=== PATIENT | female | born 1945 | race Caucasian/White ===

== ENCOUNTER → 2022-03-10 10:48 | Outpatient (CLI) | payer MEDICARE, SELFPAY ==
[2022-03-10 11:34] LABS: COVID19 -Nasal RAPID Negative (Negative)
== END ==
PROVIDERS: Referring Provider Internal Medicine Cardiovascular Disease; Visit Provider Internal Medicine Cardiovascular Disease
DX: Z20.822 Contact with and (suspected) exposure to COVID-19 (principal)
CPT/HCPCS: 87635; C9803

== ENCOUNTER → 2022-03-10 10:56 | Outpatient (CLI) | payer MEDICARE, SELFPAY ==
--- NOTE | 2022-03-15 11:12 | PM.PFT.1 ---
Pulmonary Function Test Referral & Results Date Patient Seen: 03/10/22 Requesting provider: Vijaya Mattson Results: The spirometry demonstrates an FVC of 2.43 L which is 71% of predicted. The FEV1 was measured at 1.81 L which is 74% of predicted. The FEV1/FVC ratio was 74 which is 103% of predicted. Following the administration of bronchodilator there was a 21% improvement in FEF 25-75% Lung volumes show an SVC of 2.62 L which is 70% of predicted. The diffusing capacity was measured at 13.07 which is 51% of predicted. No hemoglobin value was provided, so no correction for potential anemia could be made, if appropriate. The maximum voluntary ventilation was 97% Interpretation: This study demonstrates possibly mild obstructive lung disease based on reduction FEV1 and minimal improvement in small airway flow based on improvement in FEF 25-75% after bronchodilator. However FEV1/FVC ratio was preserved Lung volumes are also moderately reduced suggesting an element of restrictive lung disease which may well explain abnormality of FEV1 above There is a moderate to severe reduction in diffusing capacity suggesting significant disease at the capillary alveolar level as well Clinical correlation suggested
== END ==
PROVIDERS: Referring Provider Specialist; Visit Provider Specialist
DX: J98.4 Other disorders of lung (principal); R06.02 Shortness of breath; Z20.822 Contact with and (suspected) exposure to COVID-19; Z87.891 Personal history of nicotine dependence; J98.8 Other specified respiratory disorders
CPT/HCPCS: 87635; 94060; 94726; 94729; C9803

== ENCOUNTER 2022-09-21 12:30 | Outpatient (RCR) | payer MEDICARE, MEDICAID, SELFPAY | END 2022-09-21 14:30 | LOC: PUL 12:30 | PROVIDERS: Referring Provider Specialist; Visit Provider Specialist | DX: J43.8 Other emphysema (principal) | CPT/HCPCS: G0237; G0238 ==

== ENCOUNTER → 2023-01-24 12:28 | Outpatient (CLI) | payer MEDICARE, MEDICAID, SELFPAY ==
--- NOTE | 2023-01-25 15:01 | PM.PFT.1 ---
Pulmonary Function Test Referral & Results Date Patient Seen: 01/24/23 Results: The spirometry demonstrates an FVC of 2.57 L which is 99% of predicted. The FEV1 was measured at 1.94 L which is 100% of predicted. The FEV1/FVC ratio was 76 which is 100% of predicted. Following the administration of bronchodilator there was no appreciable change to above normal numbers. Lung volumes show an SVC of 2.82 L which is 108% of predicted. The diffusing capacity was measured at 13.44 which is 60% of predicted. No hemoglobin value was provided, so no correction for potential anemia could be made, if appropriate. The maximum voluntary ventilation was normal Interpretation: This study demonstrates normal spirometry There is a moderate reduction in diffusing capacity suggesting disease at the capillary alveolar level Clinical correlation suggested
== END ==
PROVIDERS: Referring Provider Internal Medicine Pulmonary Disease; Visit Provider Internal Medicine Pulmonary Disease
DX: J84.115 Respiratory bronchiolitis interstitial lung disease (principal); Z87.891 Personal history of nicotine dependence; J84.9 Interstitial pulmonary disease, unspecified; J98.4 Other disorders of lung; R91.8 Other nonspecific abnormal finding of lung field
CPT/HCPCS: 71250; 94060; 94618; 94726; 94729

== ENCOUNTER → 2023-01-24 12:28 | Outpatient (CLI) | payer MEDICARE, MEDICAID, SELFPAY ==
--- NOTE | 2023-01-24 | DI.CT.S_ITS ---
PROCEDURE: CT CHEST HIGH RESOLUTION INDICATIONS: Interstitial pulmonary disease, unspecified TECHNIQUE: Noncontrast 1.0 and 5.0 mm thick contiguous axial sections from the pulmonary apex to the posterior costophrenic angles, with 7 mm thick coronal and sagittal MIP reformats. 1 mm thick dynamic expiratory images acquired through the upper, mid, and lower lungs. 1.0 mm thick axial sections acquired from the rupal to the posterior costophrenic angles in the prone end-inspiration position. For radiation dose reduction, the following was used: automated exposure control, adjustment of mA and/or kV according to patient size. COMPARISON: None. FINDINGS: Image quality: Excellent. Lungs: Diffuse peripheral reticulation, without basilar predominance. Superimposed substantial paraseptal emphysema, predominantly in the lower lungs. No air trapping. No honeycombing. Mild bronchiectasis. Mild bronchial thickening with a few regions of mucous impaction. Scattered pulmonary micro nodules. For instance, the 2 mm nodule in the lateral right upper lobe (2/100). Pleura: No pleural effusions or pneumothorax. Mediastinum: Heart size is normal. No pericardial effusion. Thoracic aorta and central pulmonary arteries are normal in size. Esophagus is normal in caliber. Mild coronary artery calcifications for age. Bones and chest wall: No suspicious bony lesions. No vertebral body compression fractures. Abdomen: Visualized upper abdominal solid organs and bowel loops appear normal. IMPRESSION: 1. 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 Differential includes combined fibrosis and emphysema. 2. Scattered pulmonary micro nodules. Consider 12 month follow-up per Fleischner society guidelines. Dictated by: Prince Velarde M.D. on 01/24/2023 at 16:11 Approved by: Prince Velarde M.D. on 01/24/2023 at 16:15
== END ==
PROVIDERS: Referring Provider Internal Medicine Pulmonary Disease; Visit Provider Internal Medicine Pulmonary Disease
DX: J84.9 Interstitial pulmonary disease, unspecified (principal); R91.8 Other nonspecific abnormal finding of lung field
CPT/HCPCS: 71250

== ENCOUNTER → 2023-12-12 14:13 | Outpatient (CLI) | payer MEDICARE, MEDICAID, SELFPAY | PROVIDERS: Family Provider Family Medicine; PCP Family Medicine; Referring Provider Family Medicine; Visit Provider Family Medicine | DX: R91.8 Other nonspecific abnormal finding of lung field (principal); J43.8 Other emphysema; F17.210 Nicotine dependence, cigarettes, uncomplicated; J98.8 Other specified respiratory disorders | CPT/HCPCS: 94060; 94726; 94729 ==

== ENCOUNTER 2024-01-02 13:00 | Outpatient (RCR) | payer MEDICARE, MEDICAID, SELFPAY ==
--- NOTE | 2023-12-12 16:45 | PT.OIE ---
Current Diagnoses Cervicalgia (12/12/23) Past Medical History (Last Updated 11/13/23 @ 14:25 by Jacquelyn Larson MD) ADHD Lung nodules Neck strain Other low back pain Visit Care Team Role Provider Type Jacquelyn Larson MD Attending Provider Physician Family Provider Primary Care Provider Referring Provider Specialty: Family Practice [facility] Address: [address] [place] [address], [facility] Email: [email or web address] Physical Therapy Initial Evaluation PT-OP-A Visit Information Start: 12/12/23 13:01 Freq: Status: Active Protocol: Document 12/12/23 13:01 NM (Rec: 12/12/23 14:15 NM [id number]) Out-Patient Physical Therapy Visit Information Visit Information Visit Type Initial Evaluation Visit Start Time 13:00 Visit Stop Time 13:50 Visit Number 1 Evaluation Information Evaluation Date 12/12/23 PT-OP-B Current Condition Start: 12/12/23 13:01 Freq: Status: Active Protocol: Document 12/12/23 13:01 NM (Rec: 12/12/23 14:15 NM [id number]) Current Condition History of Current Condition Onset Date 3 weeks ago Current Complaints stiffness History of Current Condition Pt presents with hx of L sided neck pain beginning 3 weeks ago. The pain lasted 2 weeks, beginning when pt quickly turned her head wrong. Afterward, she had difficulty with turning head and went to walk-in clinic due to pain. It is believed it was strain. She states that the pain was sharp, immediate and nervy radiated to L posterior elbow nicole when turning her head L. She put heat on it, which as helped resolve the pain. She can feel slight strain when she lifts her L arm, but no numbness or tingling. No difficulty with sleeping currently; however, during the episode of pain she did. Sleeping on R side is most helpful. Hx of torn rotator cuffs (nonsurgical treatment) form 10 years ago, reports fully functional with shoulder . Has had past PT for lower spine and hips. Hx of osteoporosis (dx several years ago); she is taking calcium and vitamin D, does not take fosamax. Prior Treatments and Tests No imaging for cervical spine Treatment Goals Patient/Caregiver Goals more flexibility Personal Factors Other Personal Factors That May Effect Traveling from [place] Therapy/Recovery PT-OP-C Subjective Start: 12/12/23 13:01 Freq: Status: Active Protocol: Document 12/12/23 13:01 NM (Rec: 12/12/23 14:15 NM [id number]) OP-PT Subjective Patient Comments Patient Comments see hx above for pt report Patient Questionnaires Neck Disability Index NDI Score did not complete, unable to score Quick Dash- Upper Extremity Quick Dash UE Score 25% OP-PT Pain Assessment Pain Assessment Grid Paper Pain Assessment Grid Completed Yes: Currently no longer in pain Location Cervical spine Pain Location Details L sided neck near upper trap Intensity 0 Description Aching Description- Other soft bruise; at time of injury felt sharp and nervy Frequency Occasional Pain Duration none at rest; constant during movement when pain occurs Radiating Location L shoulder, L elbow/forearm when present Pain Aggravating Factors Position Other Pain Aggravating Factors L rotation, moving L arm into ext/IR; posture (when sitting on couch) Pain Alleviating Factors Heat,Rest Other Pain Alleviating Factors sitting forward Home Pain Medication Use Pain Medications Used No Pain Behaviors Pain Behaviors Holding Area PT-OP-D Balance Start: 12/12/23 13:01 Freq: Status: Active Protocol: Document 12/12/23 13:01 NM (Rec: 12/12/23 14:15 NM [id number]) Balance Tests Romberg Romberg 30 seconds Tandem Tandem Standing R 30 seconds, L 10 seconds before LOB Other Other Balance Tests Performed Eyes closed: 10 seconds, no sway PT-OP-E Functional Tests Start: 12/12/23 13:01 Freq: Status: Active Protocol: Document 12/12/23 13:01 NM (Rec: 12/12/23 14:15 NM [id number]) Functional Tests Other Deep Neck Flexor Endurance Test Name of Test chin tuck + cervical flexion for time Score 5 seconds PT-OP-F Manual Assessment Start: 12/12/23 13:01 Freq: Status: Active Protocol: Document 12/12/23 13:01 NM (Rec: 12/12/23 14:15 NM [id number]) Manual Assessments Soft Tissue Assessment Soft Tissue Mobility Assessment Soft tissue restrictions of B upper trapezius, periscapular muscles, rotator cuff, levator scapula and cervical paraspinals; L>R. Spasms and restrictions of B suboccipitals. Forward head posture and decreased cervical lordosis. Demos upper-crossed pattern Joint Mobility Assessment Joint Mobility Assessment Decreased lateral mobility of C3-C7. No tenderness but hypomobility of P-A springing along spinous processes. PT-OP-G Mobility & Gait Start: 12/12/23 13:01 Freq: Status: Active Protocol: Document 12/12/23 13:01 NM (Rec: 12/12/23 14:15 NM [id number]) OP Gait Assessment Gait Gait Assistance Required: Independent Distance (Feet) 150 Assistive Devices Assistive Device None Comments Gait Comments Decreased trunk rotation, forward head posture PT-OP-H Neuro Start: 12/12/23 13:01 Freq: Status: Active Protocol: Document 12/12/23 13:01 NM (Rec: 12/12/23 14:15 NM [id number]) Sensation Evaluation Gross Sensation Gross Sensation WNL Comments Summary Comments Cervical and BUE equally intact to light touch sensation Deep Tendon Reflex & Clonus Assessment Deep Tendon Reflex Bilateral Bicep Deep Tendon Reflex 2+ Normal PT-OP-J Posture/Palpation/Skin Start: 12/12/23 13:01 Freq: Status: Active Protocol: Document 12/12/23 13:01 NM (Rec: 12/12/23 14:15 NM [id number]) Posture Evaluation Position Standing Evaluation View lateral, posterior Head/C-Spine Posture C-Spine Flattened,Forward Head TMJ Posture Mandibular Protrusion Thorax Posture (R) Elevated L-Spine Posture Increased Lordosis Shoulder Posture (L) Rounded,(R) Rounded,(L) Forward,(R) Forward,(R) Elevated Scapula Posture (L) Protracted,(R) Protracted Pelvis Posture Anteriorly Tilted,(R) Iliac Crest Superior Weight Distribution Weight Shifted Right Hip Posture (L) Externally Rotated,(R) Externally Rotated Knee Posture (L) Genu Varus,(R) Genu Varus Patellar Posture (L) Superior,(R) Superior Comments Posture Comments Pt not formally diagnosed but 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 Palpation Assessment Location cervical spine Palpation Location paraspinals, upper trapezius, suboccipitals, deep neck flexors Palpation Findings Soft Tissue Tightness,Spasm, Tenderness Palpation Details Tenderness of L upper trap, paraspinals near mid-Cervical spine. Decreased activation of deep neck flexors. Spasms of B suboccipitals PT-OP-K Range of Motion Start: 12/12/23 13:01 Freq: Status: Active Protocol: Document 12/12/23 13:01 NM (Rec: 12/12/23 14:15 NM [id number]) Cervical Spine Range of Motion Cervical Spine Active Degrees Testing Position Sitting Flexion 55 Extension 60 Rotation Left 65 Rotation Right 65 Lateral Flexion Left 30 Lateral Flexion Right 25 ROM Limitations Soft Tissue Tightness,Bony Restriction Comments No pain with any motion, but B rotational deficits due to soft tissue tightness and bony restriction PT-OP-L Special Tests Start: 12/12/23 13:01 Freq: Status: Active Protocol: Document 12/12/23 13:01 NM (Rec: 12/12/23 14:15 NM [id number]) Special Tests Cervical Spine Special Tests Foraminal Compression Test Results - Passive Neck Flexion Test Results - Transverse Ligament Test Results - Vertebral Artery Test Results - Alar Ligament Test Results - Traction Test Results + Comments reports relief with elongation of neck muscles Spurling's Test Test Results - PT-OP-M Strength Start: 12/12/23 13:01 Freq: Status: Active Protocol: Document 12/12/23 13:01 NM (Rec: 12/12/23 14:15 NM [id number]) Cervical Spine Strength Cervical Spine Manual Muscle Testing Testing Position Sitting Flexion (C1-2) 4+ Good+ Extension 4+ Good+ Rotation Left 4+ Good+ Rotation Right 4+ Good+ Lateral Flexion Left (C3) 4+ Good+ Lateral Flexion Right (C3) 4+ Good+ Comments No pain with any resisted motion Trunk Strength Trunk Manual Muscle Testing Testing Position Sitting Flexion 4+ Good+ Extension 4+ Good+ Rotation Left 4+ Good+ Rotation Right 4+ Good+ Lateral Flexion Left 4+ Good+ Lateral Flexion Right 4+ Good+ Comments No pain with any resisted motion Shoulder Strength Shoulder Manual Muscle Testing Right Flexion 4 Good Extension 4+ Good+ Abduction (C5) 4+ Good+ Adduction 4 Good External Rotation 4 Good Internal Rotation 4 Good Left Flexion 4 Good Extension 4+ Good+ Abduction (C5) 4 Good Adduction 4 Good External Rotation 4 Good Internal Rotation 4 Good Elbow/Forearm Strength Elbow and Forearm Manual Muscle Testing Right Flexion (C6) 4+ Good+ Extension (C7) 4+ Good+ Left Flexion (C6) 4+ Good+ Extension (C7) 4+ Good+ PT-OP-Q Treatments Start: 12/12/23 13:01 Freq: Status: Active Protocol: Document 12/12/23 13:01 NM (Rec: 12/12/23 14:15 NM [id number]) Therapeutic Exercises Sitting Exercises scapular retractions Sitting Exercise Name for postural re-education; added to HEP Side bilateral Resistance AROM Reps/Minutes 2x8 with brief 2 hold Comments verbal cues for correct execution Standing Exercises Wall posture Standing Exercise Name head/back against wall, performing small capital nodding w head on wall Side bilateral Resistance AROM Reps/Minutes 1x10 w brief hold as nod down Comments cued to return to neutral position vs move into capital ext self soft tissue mobilization Standing Exercise Name Added to HEP: upper trapezius, paraspinals, rhomboids, Levator scapula Side left Reps/Minutes 4' Comments reports feels good; trial: suboccipital next session Self-Care/Home Management Treatment Education Patient Education Body Mechanics,Home Exercise Program,Joint Protection,Pain Management,Posture Other Education 8 minutes: PT educated pt briefly on posture, ergonomic sitting posture, preventing fwd head posturing and strain along posterior paraspinals, activation of deep neck flexors for improved head positioning and joint protection. Educated on use of modalities and soft tissue mobilization for muscular pain relief, particularly heat prior to massage. PT also educated on purpose/importance of HEP: scapular retractions, soft tissue mobilization of periscapulars/paraspinals, standing cervical nodding/ posture. Educated briefly on osteoporosis, strongly discouraged pt from cervical manipulations due to fracture risk as she is considering visiting chiropractor; recommended therapeutic massage instead. PT and pt discussed pt's exam findings, POC, and clinic attendance policy; both PT and pt in agreement. PT-OP-T Assessment and Plan Start: 12/12/23 13:01 Freq: Status: Active Protocol: Document 12/12/23 13:01 NM (Rec: 12/12/23 14:15 NM [id number]) Physical Therapy Assessment Rehab Potential Rehabilitation Potential Good Evaluation Complexity Number of Personal Factors/Comorbidities 3 or More Number of Body Systems Impaired 1-2 Clinical Presentation at Evaluation Stable Impairments Impairments Activity Tolerance,Balance, Functional Activities, Functional Mobility,Gait, Integument,Pain,Posture,ROM, Soft Tissue Mobility,Strength, Vestibular Other Concerns Age Related Concerns Osteoporosis Barriers to Rehabilitation Dependent on [id number] for transportation from [place], not always able to drive her car; has chronic low back pain/hip and B rotator cuff pain, which she would prefer treatment for as well but does not have referral Goals Four Impairment HEP Impairment no HEP Short Term Goal (STG) Pt will report compliance with HEP at least 3x/wk for maintenance and to demonstrate independence following discharge from PT. STG Duration 4 weeks [employer] In[employer] Goal (LTG) Pt will perform HEP at least 3x/wk for maintenance and to demonstrate independence following discharge from PT. LTG Duration 8 weeks Three Impairment endurance, strength Impairment deep neck flexor endurance test 5 seconds Short Term Goal (STG) Pt will improve deep neck flexor endurance score to at least 15 seconds without compensation or pain in order to demonstrate improved deep neck flexor activation for head posture STG Duration 4 weeks [employer] In[employer] Goal (LTG) Pt will improve deep neck flexor endurance score to at least 30 seconds without compensation or pain in order to demonstrate improved deep neck flexor activation for head posture LTG Duration 8 weeks Two Impairment function Impairment Quickdash 25% [employer] Instructor Goal (LTG) Pt will decrease quickdash score to less than 14% (MCID) in order to demonstrate improved tolerance for ADLs and symptom management LTG Duration 8 weeks One Impairment AROM Impairment B cervical rotation 65 deg, not painful [employer] Instructor Goal (LTG) Pt will increase B cervical rotation to >65 deg without compensation in order to demonstrate improved soft tissue extensibility and QOL LTG Duration 8 weeks Assessment Summary Assessment Pt is a 78 y.o. female presenting with hx of acute L- sided neck pain beginning 2 weeks ago. Currently, pt reports that pain has resolved with occasional feelings of achiness along L sided muscles . Her chief complaints are stiffness and tight neck muscles, particularly posteriorly along the cervical spine. She has limitations in only B cervical ROM (not painful), otherwise full and pain free AROM. She is able to maintain cervical muscle stabilization against resistance. Pt demos decreased activation and strength of cervical deep neck flexors, only maintaining painfree contraction for 5 seconds, which is below the gender related norm. Pt reports relief with soft tissue mobilization of paraspinals and periscapular muscles, followed by wall postural re- education. Negative spurling's test, cervical instability, and compression; however, reports relief with traction due to elongated muscles. No nerve symptoms reproduced or currently present. Pt presents with forward head and rounded shoulder posture, which likely places increased strain along posterior paraspinals and posterior capsule of cervical spine. Pt has moderate soft tissue restrictions along cervical spine and periscapular region. She also demos deviation of thoracic spine to R side but pt does not have a formal diagnosis of scoliosis. PT educated on increased fracture risk, precuations due to osteoporosis, with pt verbalizing understanding. PT and pt discussed pt's exam findings, POC, and clinic attendance policy; both PT and pt in agreement. Pt would benefit from skilled PT to improve pt's soft tissue restrictions, spinal mobility, and postural muscle strengthening/re-education in order to decrease pain symptoms, return to PLOF, and improve QOL. Physical Therapy Plan Frequency and Duration Frequency of Treatment 1-2x/wk Duration of treatment (weeks) 8 Plan of Care Start Date 12/12/23 Plan of Care End Date 02/06/24 Therapeutic Interventions Therapeutic Interventions Aquatic Therapy,Balance Training,Gait Training,Home Exercise Program,Joint Mobilizations,Manual Therapy, Neuromuscular Re-education, Patient/Caregiver Education, Self-Care/Home Management,Soft Tissue Mobilization,Taping, Therapeutic Activities, Therapeutic Exercises, Vestibular Rehabilitation Modalities Biofeedback,Cold Pack/Ice Massage,Electric Stimulation, Hot Packs,Ultrasound Next Visit Focus/Plan Next Note Type Treatment Note Next Visit Plan Osteoporosis- no grade IV mobilizations or manipulations Manual: STM, grade I-II lateral mobilizations R>L, heat Chin tuck, posture re- education (sitting) and strengthening, scapular retractions>rows, gentle pec stretch (standing), thoracic mobility (open books, thoracic ext), trial gentle stretching , suboccipital self STM Education: sitting and sleeping ergonomics
--- NOTE | 2024-01-02 14:16 | PT.OTN ---
Current Diagnoses Cervicalgia (01/02/24) Physical Therapy Treatment Note PT-OP-A Visit Information Start: 12/12/23 13:01 Freq: Status: Active Protocol: Document 01/02/24 12:11 AB (Rec: 01/02/24 14:16 AB [id number]) Out-Patient Physical Therapy Visit Information Visit Information Visit Type Treatment Note Visit Note Access Code [email or web address] Visit Start Time 13:05 Visit Stop Time 13:54 Visit Number 2 Number of FLOOR CARE TECHNICIAN Visits 1 Evaluation Information Evaluation Date 12/12/23 PT-OP-B Current Condition Start: 12/12/23 13:01 Freq: Status: Active Protocol: Document 12/12/23 13:01 NM (Rec: 12/12/23 14:15 NM [id number]) Current Condition History of Current Condition Onset Date 3 weeks ago Current Complaints stiffness History of Current Condition Pt presents with hx of L sided neck pain beginning 3 weeks ago. The pain lasted 2 weeks, beginning when pt quickly turned her head wrong. Afterward, she had difficulty with turning head and went to walk-in clinic due to pain. It is believed it was strain. She states that the pain was sharp, immediate and nervy radiated to L posterior elbow nicole when turning her head L. She put heat on it, which as helped resolve the pain. She can feel slight strain when she lifts her L arm, but no numbness or tingling. No difficulty with sleeping currently; however, during the episode of pain she did. Sleeping on R side is most helpful. Hx of torn rotator cuffs (nonsurgical treatment) form 10 years ago, reports fully functional with shoulder . Has had past PT for lower spine and hips. Hx of osteoporosis (dx several years ago); she is taking calcium and vitamin D, does not take fosamax. Prior Treatments and Tests No imaging for cervical spine Treatment Goals Patient/Caregiver Goals more flexibility Personal Factors Other Personal Factors That May Effect Traveling from [place] [facility] PT-OP-C Subjective Start: 12/12/23 13:01 Freq: Status: Active Protocol: Document 01/02/24 12:11 AB (Rec: 01/02/24 14:16 AB [id number]) OP-PT Subjective Patient Comments Patient Comments Patient verbalizes that she wants her back treated, her neck is better. Patient ed and PT, Ros Shea into session to make patient aware a referral for the back would be needed to treat the low back. Patient agreeable to have the neck treated today, comments she will cancel her future appointments. PT-OP-D Balance Start: 12/12/23 13:01 Freq: Status: Active Protocol: Document 12/12/23 13:01 NM (Rec: 12/12/23 14:15 NM [id number]) Balance Tests Romberg Romberg 30 seconds Tandem Tandem Standing R 30 seconds, L 10 seconds before LOB Other Other Balance Tests Performed Eyes closed: 10 seconds, no sway PT-OP-E Functional Tests Start: 12/12/23 13:01 Freq: Status: Active Protocol: Document 12/12/23 13:01 NM (Rec: 12/12/23 14:15 NM [id number]) Functional Tests Other Deep Neck Flexor Endurance Test Name of Test chin tuck + cervical flexion for time Score 5 seconds PT-OP-F Manual Assessment Start: 12/12/23 13:01 Freq: Status: Active Protocol: Document 12/12/23 13:01 NM (Rec: 12/12/23 14:15 NM [id number]) Manual Assessments Soft Tissue Assessment Soft Tissue Mobility Assessment Soft tissue restrictions of B upper trapezius, periscapular muscles, rotator cuff, levator scapula and cervical paraspinals; L>R. Spasms and restrictions of B suboccipitals. Forward head posture and decreased cervical lordosis. Demos upper-crossed pattern Joint Mobility Assessment Joint Mobility Assessment Decreased lateral mobility of C3-C7. No tenderness but hypomobility of P-A springing along spinous processes. PT-OP-G Mobility & Gait Start: 12/12/23 13:01 Freq: Status: Active Protocol: Document 12/12/23 13:01 NM (Rec: 12/12/23 14:15 NM [id number]) OP Gait Assessment Gait Gait Assistance Required: Independent Distance (Feet) 150 Assistive Devices Assistive Device None Comments Gait Comments Decreased trunk rotation, forward head posture PT-OP-H Neuro Start: 12/12/23 13:01 Freq: Status: Active Protocol: Document 12/12/23 13:01 NM (Rec: 12/12/23 14:15 NM [id number]) Sensation Evaluation Gross Sensation Gross Sensation WNL Comments Summary Comments Cervical and BUE equally intact to light touch sensation Deep Tendon Reflex & Clonus Assessment Deep Tendon Reflex Bilateral Bicep Deep Tendon Reflex 2+ Normal PT-OP-J Posture/Palpation/Skin Start: 12/12/23 13:01 Freq: Status: Active Protocol: Document 12/12/23 13:01 NM (Rec: 12/12/23 14:15 NM [id number]) Posture Evaluation Position Standing Evaluation View lateral, posterior Head/C-Spine Posture C-Spine Flattened,Forward Head TMJ Posture Mandibular Protrusion Thorax Posture (R) Elevated L-Spine Posture Increased Lordosis Shoulder Posture (L) Rounded,(R) Rounded,(L) Forward,(R) Forward,(R) Elevated Scapula Posture (L) Protracted,(R) Protracted Pelvis Posture Anteriorly Tilted,(R) Iliac Crest Superior Weight Distribution Weight Shifted Right Hip Posture (L) Externally Rotated,(R) Externally Rotated Knee Posture (L) Genu Varus,(R) Genu Varus Patellar Posture (L) Superior,(R) Superior Comments Posture Comments Pt not formally diagnosed but 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 Palpation Assessment Location cervical spine Palpation Location paraspinals, upper trapezius, suboccipitals, deep neck flexors Palpation Findings Soft Tissue Tightness,Spasm, Tenderness Palpation Details Tenderness of L upper trap, paraspinals near mid-Cervical spine. Decreased activation of deep neck flexors. Spasms of B suboccipitals PT-OP-K Range of Motion Start: 12/12/23 13:01 Freq: Status: Active Protocol: Document 12/12/23 13:01 NM (Rec: 12/12/23 14:15 NM [id number]) Cervical Spine Range of Motion Cervical Spine Active Degrees Testing Position Sitting Flexion 55 Extension 60 Rotation Left 65 Rotation Right 65 Lateral Flexion Left 30 Lateral Flexion Right 25 ROM Limitations Soft Tissue Tightness,Bony Restriction Comments No pain with any motion, but B rotational deficits due to soft tissue tightness and bony restriction PT-OP-L Special Tests Start: 12/12/23 13:01 Freq: Status: Active Protocol: Document 12/12/23 13:01 NM (Rec: 12/12/23 14:15 NM [id number]) Special Tests Cervical Spine Special Tests Foraminal Compression Test Results - Passive Neck Flexion Test Results - Transverse Ligament Test Results - Vertebral Artery Test Results - Alar Ligament Test Results - Traction Test Results + Comments reports relief with elongation of neck muscles Spurling's Test Test Results - PT-OP-M Strength Start: 12/12/23 13:01 Freq: Status: Active Protocol: Document 12/12/23 13:01 NM (Rec: 12/12/23 14:15 NM [id number]) Cervical Spine Strength Cervical Spine Manual Muscle Testing Testing Position Sitting Flexion (C1-2) 4+ Good+ Extension 4+ Good+ Rotation Left 4+ Good+ Rotation Right 4+ Good+ Lateral Flexion Left (C3) 4+ Good+ Lateral Flexion Right (C3) 4+ Good+ Comments No pain with any resisted motion Trunk Strength Trunk Manual Muscle Testing Testing Position Sitting Flexion 4+ Good+ Extension 4+ Good+ Rotation Left 4+ Good+ Rotation Right 4+ Good+ Lateral Flexion Left 4+ Good+ Lateral Flexion Right 4+ Good+ Comments No pain with any resisted motion Shoulder Strength Shoulder Manual Muscle Testing Right Flexion 4 Good Extension 4+ Good+ Abduction (C5) 4+ Good+ Adduction 4 Good External Rotation 4 Good Internal Rotation 4 Good Left Flexion 4 Good Extension 4+ Good+ Abduction (C5) 4 Good Adduction 4 Good External Rotation 4 Good Internal Rotation 4 Good Elbow/Forearm Strength Elbow and Forearm Manual Muscle Testing Right Flexion (C6) 4+ Good+ Extension (C7) 4+ Good+ Left Flexion (C6) 4+ Good+ Extension (C7) 4+ Good+ PT-OP-Q Treatments Start: 12/12/23 13:01 Freq: Status: Active Protocol: Document 01/02/24 12:11 AB (Rec: 01/02/24 14:16 AB [id number]) Therapeutic Exercises Supine Exercises chin tuck Reps/Minutes X10 Comments tactile cues at occiput, verbal cues to decrease force by 50 % Sidelying Exercises open book Side bilateral Reps/Minutes X5 holding X 5 breaths Comments Verbal cues for UE position, tactile cues for LE post Sitting Exercises CS rotation AROM Sitting Exercise Name with pillows under UE's Equipment Used X10 Reps/Minutes Verbal cues to perform in pain free range Standing Exercises Rows Side bilateral Equipment Used level 4 band ( initiated with level one then 3 ) Reps/Minutes 2X10 Comments Verbal cues for stagger stance pec stretch at door Standing Exercise Name single arm pec stretch Side bilateral Reps/Minutes 60 seconds each UE Other Exercises quadruped CS rotation Reps/Minutes X10 Comments Verbal cues for quadruped position and to turn head slowly in painfree rang Manual Therapy Treatment Soft Tissue Mobilization bilateral pec Mobilization Type Cross-Friction,Rolling Intensity/Depth Moderate Body Position Hooklying Comments Monitored for pain CS/scalenes at lateral clavicle Body Location bilaterally Mobilization Type Cross-Friction,Rolling Intensity/Depth Moderate Body Position seated with UE's elevated Comments Monitored for pain Self-Care/Home Management Treatment Education Other Education Patient ed she will need a new order from MD to have the back treated. Activities Self-Care/Home Management Activities CS rotation in quadruped, standing pec stretch, open book, rows with blue band added to HEP PT-OP-T Assessment and Plan Start: 12/12/23 13:01 Freq: Status: Active Protocol: Document 01/02/24 12:11 AB (Rec: 01/02/24 14:16 AB [id number]) Physical Therapy Assessment Goals Four Impairment HEP Impairment no HEP Short Term Goal (STG) Pt will report compliance with HEP at least 3x/wk for maintenance and to demonstrate independence following discharge from PT. STG Duration 4 weeks Seismograph Recorder Goal (LTG) Pt will perform HEP at least 3x/wk for maintenance and to demonstrate independence following discharge from PT. LTG Duration 8 weeks Three Impairment endurance, strength Impairment deep neck flexor endurance test 5 seconds Short Term Goal (STG) Pt will improve deep neck flexor endurance score to at least 15 seconds without compensation or pain in order to demonstrate improved deep neck flexor activation for head posture STG Duration 4 weeks [facility] Goal (LTG) Pt will improve deep neck flexor endurance score to at least 30 seconds without compensation or pain in order to demonstrate improved deep neck flexor activation for head posture LTG Duration 8 weeks Two Impairment function Impairment Quickdash 25% Seismograph Recorder Goal (LTG) Pt will decrease quickdash score to less than 14% (MCID) in order to demonstrate improved tolerance for ADLs and symptom management LTG Duration 8 weeks One Impairment AROM Impairment B cervical rotation 65 deg, not painful Seismograph Recorder Goal (LTG) Pt will increase B cervical rotation to >65 deg without compensation in order to demonstrate improved soft tissue extensibility and QOL LTG Duration 8 weeks Assessment Summary Assessment Patient reports the neck feels like it has been oiled. Patient comments she would like to be treated again by this therapist. Patient has been made aware that this therapist is an insurance legal assistant and she will also need to be seen by a PT. Physical Therapy Plan Frequency and Duration Frequency of Treatment 1-2x/wk Duration of treatment (weeks) 8 Plan of Care Start Date 12/12/23 Plan of Care End Date 02/06/24 Next Visit Focus/Plan Next Note Type Treatment Note Next Visit Plan Osteoporosis- no grade IV mobilizations or manipulations Manual: STM, grade I-II lateral mobilizations R>L, heat Chin tuck, posture re- education (sitting) and strengthening, thoracic mobility (thoracic ext), trial gentle stretching, suboccipital self STM Education: sitting and sleeping ergonomics Review HEP post manual therapy , possibly pec stretch on soft foam roller in clinic, deep neck flexor isometric reactive .
--- NOTE | 2024-01-15 16:06 | PT-OP ANOTE ---
PT called and spoke to pt at 1600 to follow up regarding canceled appts and to determine if pt is wanting to continue PT at this time; she has not made more appts. Last visit with IMAGING SERVICES DIRECTOR, pt was very upset because she was wanting treatment for spine beyond cervical spine, which is what her referral is for despite IMAGING SERVICES DIRECTOR and PT educated pt at last appt about referral, POC. PT spoke with pt today as pt is concerned that her referral does not address the issue that she is wanting to have treated. She reports that her spine has degenerative disc disease that is worse 'near the neck' but 'below the neck'. Pt not wanting to be discharged from PT but is not making any appt at this time. PT educated pt on previous evaluation and POC expiration on 02/06/24, recommending that pt make appt before that time if she is wanting to continue with PT for the original referral as it is likely related to pt's current concern. However, pt recommended pt get new referral from doctor if she is wanting treatment specific for lumbar or thoracic spine, as pt is suggesting. PT also educated pt on PT/IMAGING SERVICES DIRECTOR difference and how pt would be seeing both at this clinic, but IMAGING SERVICES DIRECTOR follows plan set by PT. PT informed pt that pt will be kept on caseload until POC expiration on 02/05, but will be discharged if she does not make new appt before POC expiration or get new referral. Informed that pt will need new evaluation and will need to provide new referral for appt if not for same condition as previous referral. Pt verbalizes understanding
--- NOTE | 2024-05-19 16:05 | PT.OPDS ---
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, [address] Email: [email or web address] Visit Number Visit Number 2 Discharge Summary PT-OP-B Current Condition Start: 12/12/23 13:01 Freq: Status: Active Protocol: Document 12/12/23 13:01 NM (Rec: 12/12/23 14:15 NM [id number]) Current Condition History of Current Condition Onset Date 3 weeks ago Current Complaints stiffness History of Current Condition Pt presents with hx of L sided neck pain beginning 3 weeks ago. The pain lasted 2 weeks, beginning when pt quickly turned her head wrong. Afterward, she had difficulty with turning head and went to walk-in clinic due to pain. It is believed it was strain. She states that the pain was sharp, immediate and nervy radiated to L posterior elbow nicole when turning her head L. She put heat on it, which as helped resolve the pain. She can feel slight strain when she lifts her L arm, but no numbness or tingling. No difficulty with sleeping currently; however, during the episode of pain she did. Sleeping on R side is most helpful. Hx of torn rotator cuffs (nonsurgical treatment) form 10 years ago, reports fully functional with shoulder . Has had past PT for lower spine and hips. Hx of osteoporosis (dx several years ago); she is taking calcium and vitamin D, does not take fosamax. Prior Treatments and Tests No imaging for cervical spine Treatment Goals Patient/Caregiver Goals more flexibility Personal Factors Other Personal Factors That May Effect Traveling from [place] Therapy/Recovery PT-OP-C Subjective Start: 12/12/23 13:01 Freq: Status: Active Protocol: Document 01/02/24 12:11 AB (Rec: 01/02/24 14:16 AB [id number]) OP-PT Subjective Patient Comments Patient Comments Patient verbalizes that she wants her back treated, her neck is better. Patient ed and PT, Ros Shea into session to make patient aware a referral for the back would be needed to treat the low back. Patient agreeable to have the neck treated today, comments she will cancel her future appointments. PT-OP-D Balance Start: 12/12/23 13:01 Freq: Status: Active Protocol: Document 12/12/23 13:01 NM (Rec: 12/12/23 14:15 NM [id number]) Balance Tests Romberg Romberg 30 seconds Tandem Tandem Standing R 30 seconds, L 10 seconds before LOB Other Other Balance Tests Performed Eyes closed: 10 seconds, no sway PT-OP-E Functional Tests Start: 12/12/23 13:01 Freq: Status: Active Protocol: Document 12/12/23 13:01 NM (Rec: 12/12/23 14:15 NM [id number]) Functional Tests Other Deep Neck Flexor Endurance Test Name of Test chin tuck + cervical flexion for time Score 5 seconds PT-OP-F Manual Assessment Start: 12/12/23 13:01 Freq: Status: Active Protocol: Document 12/12/23 13:01 NM (Rec: 12/12/23 14:15 NM [id number]) Manual Assessments Soft Tissue Assessment Soft Tissue Mobility Assessment Soft tissue restrictions of B upper trapezius, periscapular muscles, rotator cuff, levator scapula and cervical paraspinals; L>R. Spasms and restrictions of B suboccipitals. Forward head posture and decreased cervical lordosis. Demos upper-crossed pattern Joint Mobility Assessment Joint Mobility Assessment Decreased lateral mobility of C3-C7. No tenderness but hypomobility of P-A springing along spinous processes. PT-OP-G Mobility & Gait Start: 12/12/23 13:01 Freq: Status: Active Protocol: Document 12/12/23 13:01 NM (Rec: 12/12/23 14:15 NM [id number]) OP Gait Assessment Gait Gait Assistance Required: Independent Distance (Feet) 150 Assistive Devices Assistive Device None Comments Gait Comments Decreased trunk rotation, forward head posture PT-OP-H Neuro Start: 12/12/23 13:01 Freq: Status: Active Protocol: Document 12/12/23 13:01 NM (Rec: 12/12/23 14:15 NM [id number]) Sensation Evaluation Gross Sensation Gross Sensation WNL Comments Summary Comments Cervical and BUE equally intact to light touch sensation Deep Tendon Reflex & Clonus Assessment Deep Tendon Reflex Bilateral Bicep Deep Tendon Reflex 2+ Normal PT-OP-J Posture/Palpation/Skin Start: 12/12/23 13:01 Freq: Status: Active Protocol: Document 12/12/23 13:01 NM (Rec: 12/12/23 14:15 NM [id number]) Posture Evaluation Position Standing Evaluation View lateral, posterior Head/C-Spine Posture C-Spine Flattened,Forward Head TMJ Posture Mandibular Protrusion Thorax Posture (R) Elevated L-Spine Posture Increased Lordosis Shoulder Posture (L) Rounded,(R) Rounded,(L) Forward,(R) Forward,(R) Elevated Scapula Posture (L) Protracted,(R) Protracted Pelvis Posture Anteriorly Tilted,(R) Iliac Crest Superior Weight Distribution Weight Shifted Right Hip Posture (L) Externally Rotated,(R) Externally Rotated Knee Posture (L) Genu Varus,(R) Genu Varus Patellar Posture (L) Superior,(R) Superior Comments Posture Comments Pt not formally diagnosed but 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 Palpation Assessment Location cervical spine Palpation Location paraspinals, upper trapezius, suboccipitals, deep neck flexors Palpation Findings Soft Tissue Tightness,Spasm, Tenderness Palpation Details Tenderness of L upper trap, paraspinals near mid-Cervical spine. Decreased activation of deep neck flexors. Spasms of B suboccipitals PT-OP-K Range of Motion Start: 12/12/23 13:01 Freq: Status: Active Protocol: Document 12/12/23 13:01 NM (Rec: 12/12/23 14:15 NM [id number]) Cervical Spine Range of Motion Cervical Spine Active Degrees Testing Position Sitting Flexion 55 Extension 60 Rotation Left 65 Rotation Right 65 Lateral Flexion Left 30 Lateral Flexion Right 25 ROM Limitations Soft Tissue Tightness,Bony Restriction Comments No pain with any motion, but B rotational deficits due to soft tissue tightness and bony restriction PT-OP-L Special Tests Start: 12/12/23 13:01 Freq: Status: Active Protocol: Document 12/12/23 13:01 NM (Rec: 12/12/23 14:15 NM [id number]) Special Tests Cervical Spine Special Tests Foraminal Compression Test Results - Passive Neck Flexion Test Results - Transverse Ligament Test Results - Vertebral Artery Test Results - Alar Ligament Test Results - Traction Test Results + Comments reports relief with elongation of neck muscles Spurling's Test Test Results - PT-OP-M Strength Start: 12/12/23 13:01 Freq: Status: Active Protocol: Document 12/12/23 13:01 NM (Rec: 12/12/23 14:15 NM [id number]) Cervical Spine Strength Cervical Spine Manual Muscle Testing Testing Position Sitting Flexion (C1-2) 4+ Good+ Extension 4+ Good+ Rotation Left 4+ Good+ Rotation Right 4+ Good+ Lateral Flexion Left (C3) 4+ Good+ Lateral Flexion Right (C3) 4+ Good+ Comments No pain with any resisted motion Trunk Strength Trunk Manual Muscle Testing Testing Position Sitting Flexion 4+ Good+ Extension 4+ Good+ Rotation Left 4+ Good+ Rotation Right 4+ Good+ Lateral Flexion Left 4+ Good+ Lateral Flexion Right 4+ Good+ Comments No pain with any resisted motion Shoulder Strength Shoulder Manual Muscle Testing Right Flexion 4 Good Extension 4+ Good+ Abduction (C5) 4+ Good+ Adduction 4 Good External Rotation 4 Good Internal Rotation 4 Good Left Flexion 4 Good Extension 4+ Good+ Abduction (C5) 4 Good Adduction 4 Good External Rotation 4 Good Internal Rotation 4 Good Elbow/Forearm Strength Elbow and Forearm Manual Muscle Testing Right Flexion (C6) 4+ Good+ Extension (C7) 4+ Good+ Left Flexion (C6) 4+ Good+ Extension (C7) 4+ Good+ PT-OP-T Assessment and Plan Start: 12/12/23 13:01 Freq: Status: Active Protocol: Document 05/19/24 15:58 NM (Rec: 05/19/24 16:05 NM [id number]) Physical Therapy Assessment Goals Four Impairment HEP Impairment no HEP Short Term Goal (STG) Pt will report compliance with HEP at least 3x/wk for maintenance and to demonstrate independence following discharge from PT. STG Duration 4 weeks Senior Care Goal (LTG) Pt will perform HEP at least 3x/wk for maintenance and to demonstrate independence following discharge from PT. LTG Duration 8 weeks Three Impairment endurance, strength Impairment deep neck flexor endurance test 5 seconds Short Term Goal (STG) Pt will improve deep neck flexor endurance score to at least 15 seconds without compensation or pain in order to demonstrate improved deep neck flexor activation for head posture STG Duration 4 weeks Rn Lpn Cna Goal (LTG) Pt will improve deep neck flexor endurance score to at least 30 seconds without compensation or pain in order to demonstrate improved deep neck flexor activation for head posture LTG Duration 8 weeks Two Impairment function Impairment Quickdash 25% Rn Lpn Cna Goal (LTG) Pt will decrease quickdash score to less than 14% (MCID) in order to demonstrate improved tolerance for ADLs and symptom management LTG Duration 8 weeks One Impairment AROM Impairment B cervical rotation 65 deg, not painful Senior Care Goal (LTG) Pt will increase B cervical rotation to >65 deg without compensation in order to demonstrate improved soft tissue extensibility and QOL LTG Duration 8 weeks Assessment Summary Assessment Pt was evaluated in December 2023 for neck pain. She attended 1 session after evaluation, cancelling 3 other scheduled appointments. Pt had difficulty with attending sessions due to [place] schedule . Pt attended only 01/02 appointment. She canceled all remaining appt afterward. PT spoke with pt to clarify following canceled appointments on 01/15/24, as pt is concerned that her referral does not address the issue that she is wanting to have treated. Per conversation , she reports that her spine has degenerative disc disease that is worse 'near the neck' but 'below the neck'. At time of phone converation, pt not wanting to be discharged from PT but is not making any appt at this time. PT educated pt on plan of care expiration on 02/06/24, recommending that pt make appt before that time if she is wanting to continue with PT for the original referral as it is likely related to pt's current concern. Physical Therapy Plan Frequency and Duration Frequency of Treatment 1-2x/wk Duration of treatment (weeks) 8 Plan of Care Start Date 12/12/23 Plan of Care End Date 02/06/24 Therapeutic Interventions Therapeutic Interventions Aquatic Therapy,Balance Training,Gait Training,Home Exercise Program,Joint Mobilizations,Manual Therapy, Neuromuscular Re-education, Patient/Caregiver Education, Self-Care/Home Management,Soft Tissue Mobilization,Taping, Therapeutic Activities, Therapeutic Exercises, Vestibular Rehabilitation Modalities Biofeedback,Cold Pack/Ice Massage,Electric Stimulation, Hot Packs,Ultrasound Discharge Physical Therapy Discharge Reasons No Longer Attending PT Discharge Comments Pt has not been seen in clinic since 01/02/24. She canceled all remaining appointments and did not schedule more following phone call with PT on 01/15/24. Pt will be discharged from PT as she is no longer attending PT and will need new referral to return to PT. Next Visit Focus/Plan Next Visit Plan discharge from PT
== END 2024-05-21 13:27 | disposition home or self-care (01) ==
LOC: PHYS 13:00
PROVIDERS: Family Provider Family Medicine; PCP Family Medicine; Referring Provider Family Medicine; Visit Provider Family Medicine
DX: M54.2 Cervicalgia (principal)
CPT/HCPCS: 97110; 97140; 97161; 97535

== ENCOUNTER → 2024-01-02 14:00 | Outpatient (CLI) | payer MEDICARE, MEDICAID, SELFPAY ==
--- NOTE | 2024-01-02 14:01 | DI.CT.S_ITS ---
PROCEDURE: CT CHEST WO CON INDICATIONS: lung nodule TECHNIQUE: Noncontrast 5 mm thick sections acquired from the pulmonary apices to the posterior costophrenic angles. 1 mm lung window, 5 mm thick coronal and sagittal and 7 mm axial MIP reformats were then acquired. For radiation dose reduction, the following was used: automated exposure control, adjustment of mA and/or kV according to patient size. COMPARISON: [facility], CT, CT CHEST HIGH RESOLUTION, 01/24/2023, 14:54. FINDINGS: Image quality: Diagnostic. Lower Neck: No enlarged lymph nodes. Thyroid: No thyroid nodules which require sonographic follow up, per consensus guidelines. Axillae: No enlarged lymph nodes. Chest Wall: Unremarkable. Bones: Degenerative disc disease, most prominent T12-L1. Lungs and Pleura: No pneumothorax or pleural effusions. Substantial paraseptal emphysema of the lung bases. Moderate centrilobular emphysema. Diffuse reticulation, with apical dominance. No honeycombing. Minimal bronchiectasis. Stable pulmonary micro nodules, accounting for slice selection. Examples include the 2 millimeter solid nodule in the medial right upper lobe (series 3, image 54) and 2 millimeter nodule in the anterior right upper lobe (series 3, image 116). Heart: Heart size is normal. No pericardial effusion. Moderate coronary calcifications. Thoracic Vessels: The aorta and pulmonary arteries demonstrate normal size. Mediastinum and Azra: No enlarged lymph nodes. Esophagus: No wall thickening. No hiatal hernia. Upper Abdomen: Visualized upper abdomen solid organs and bowel loops appear normal. IMPRESSION: Stable interstitial lung disease, probable UIP pattern. Combined fibrosis and pulmonary emphysema is on the differential. Stable pulmonary micro nodules, likely benign. Dictated by: Prince Velarde M.D. on 01/02/2024 at 15:48 Approved by: Prince Velarde M.D. on 01/02/2024 at 15:57
== END ==
PROVIDERS: Family Provider Family Medicine; PCP Family Medicine; Referring Provider Family Medicine; Visit Provider Family Medicine
DX: J84.10 Pulmonary fibrosis, unspecified (principal); R91.8 Other nonspecific abnormal finding of lung field; J43.2 Centrilobular emphysema; I25.10 Atherosclerotic heart disease of native coronary artery without angina pectoris
CPT/HCPCS: 71250

== ENCOUNTER → 2025-01-01 10:06 | Outpatient (CLI) | payer MEDICARE, MEDICAID, SELFPAY ==
[2025-01-01 11:04] LABS: Add Manual Diff / Slide Review NO; Basophils Absolute Auto 100 /uL (0-100); Eosinophils Absolute Auto 200 /uL (0-450); Eosinophils Percent Auto 2.4 % (2-4); Hematocrit 42.3 % (36-46); Hemoglobin 14.3 g/dL (12.0-16.0); Lymphocytes Absolute Auto 2000 /uL (1100-4500); Lymphocytes Percent Auto 23.3 % (25-40); Mean Corpuscular HGB Conc 33.7 % (30-36); Mean Corpuscular Hemoglobin 32.5 PG (26-34); Mean Corpuscular Volume 96.5 fL (80-100); Monocytes Absolute Auto 800 /uL (0-900); Monocytes Percent Auto 8.8 % (3-14); Neutrophils Absolute Auto 5700 /uL (1500-7000); Neutrophils Percent Auto 64.5 % (50-75); Platelet Count 345 X10^3/uL (150-400); Red Blood Cell Count 4.38 X10^6/uL (4.0-5.2); Red Cell Distribution Width 13.2 % (11.6-14.8); White Blood Cell Count 8.7 X10^3/uL (4.5-11.0)
[2025-01-01 11:22] LABS: Alanine Aminotransferase 22 IU/L (<35); Albumin 4.5 g/dL (3.5-5.0); Albumin Globulin Ratio 1.5 (1.0-2.8); Alkaline Phosphatase 85 U/L (38-126); Aspartate Aminotransferase 42 IU/L (14-36); Bilirubin Total 0.6 mg/dL (0.2-1.3); Blood Urea Nitrogen 15 mg/dL (7-17); Calcium 9.7 mg/dL (8.4-10.2); Carbon Dioxide 27 mmol/L (22-32); Chloride 102 mmol/L (98-107); Cholesterol 277 mg/dL (140-199); Estimated Glomerular Filt Rate > 60 mL/min (>60); Glucose 85 mg/dL (80-110); HEMOLYSIS < 15 (0-50); Potassium 4.2 mmol/L (3.4-5.1); Sodium 138 mmol/L (137-145); Total Protein 7.5 g/dL (6.3-8.2); Triglycerides 50 mg/dL (35-150)
[2025-01-01 11:37] LABS: HDL Cholesterol 172 mg/dL (40-60); LDL Cholesterol Calculated 95 mg/dL (<100)
[2025-01-01 11:39] LABS: Vitamin D 25 Hydroxy (D3) 43.2 ng/mL (30.0-100.0)
== END ==
PROVIDERS: Family Provider Family Medicine; PCP Family Medicine; Referring Provider Family Medicine; Visit Provider Family Medicine
DX: Z13.6 Encounter for screening for cardiovascular disorders (principal); M81.0 Age-related osteoporosis without current pathological fracture
CPT/HCPCS: 36415; 80053; 80061; 82306; 85025